=== PATIENT | male | born 1975 | race Caucasian/White ===

== ENCOUNTER 2019-11-09 00:05 | Emergency (ER) | payer SELFPAY ==
[~2019-11-09 00:05] MED LIST: IBUPROFEN600 MG PO; NO HOME MEDICATIONS; PHENERGAN W/CO120 M1 PO; VENTOLIN0.09 MG IH
[2019-11-09 00:50] LABS: HEMATOCRIT 44.4 % (42.0-52.0); HEMOGLOBIN 15.1 g/dL (13.5-18.0); MEAN CELL VOLUME 88 fl (78-100); MEAN CORPUSCULAR HEMOGLOBIN 30 pg (27-31); MEAN CORPUSCULAR HGB CONC 34 g/dL (33-37); MEAN PLATELET VOLUME 9.1 fl (7.4-10.4); PLATELET COUNT 269 K/mm3 (130-400); RED BLOOD COUNT 5.05 M/mm3 (4.20-5.60); RED CELL DISTRIBUTION WIDTH 13.7 % (11.5-14.5); WHITE BLOOD COUNT 15.3 K/mm3 (4.8-10.8)
[2019-11-09 00:58] LABS: ALBUMIN 4.5 g/dL (3.5-5.0)
[2019-11-09 00:59] LABS: POTASSIUM 4.1 mmol/L (3.5-5.1)
[2019-11-09 01:00] LABS: CALCIUM 9.1 mg/dL (8.3-10.5)
[2019-11-09 01:01] LABS: TOTAL PROTEIN 7.3 g/dL (6.4-8.3)
[2019-11-09 01:03] LABS: TOTAL BILIRUBIN 0.2 mg/dL (0.2-1.2)
[2019-11-09 01:10] LABS: URINE APPEARANCE CLEAR; URINE COLOR STRAW; URINE GLUCOSE NEGATIVE (NEGATIVE); URINE PROTEIN(semi-quant) NEGATIVE (NEGATIVE)
[2019-11-09 01:11] LABS: LYMPHOCYTE 14 % (20-51); MONOCYTE 4 % (3-10); NEUTROPHILS 80 % (42-75); URINE BILIRUBIN NEGATIVE (NEGATIVE); URINE BLOOD TRACE (NEGATIVE); URINE KETONE 1+ (NEGATIVE); URINE LEUKOCYTE ESTERASE NEGATIVE (NEGATIVE); URINE NITRATE NEGATIVE (NEGATIVE); URINE UROBILINOGEN NORMAL (NORMAL); URINE WBC 0-1 /hpf (0-3)
[2019-11-09] MEDS ORDERED: NORCO 325 MG-51 TA1 PO (03:05)
[2019-11-09] MEDS ORDERED: CLEOCIN HCL150 M1 PO (03:05)
[2019-11-09 03:16] VITALS: BP 110/68
== END 2019-11-09 03:16 | disposition home or self-care (01) ==
LOC: ED 00:05
PROVIDERS: Family Medicine
DX: S00.83XA Contusion of other part of head, initial encounter (principal); S20.212A Contusion of left front wall of thorax, initial encounter; K08.89 Other specified disorders of teeth and supporting structures; Y04.0XXA Assault by unarmed brawl or fight, initial encounter; Y92.009 Unspecified place in unspecified non-institutional (private) residence as the place of occurrence of the external cause
CPT/HCPCS: J1885; L0172

== ENCOUNTER 2020-12-06 00:49 | Emergency (ER) | payer OTHER ==
[~2020-12-06 00:49] MED LIST changes: +CLEOCIN HCL150 M1 PO; +NORCO 325 MG-51 TA1 PO
[2020-12-06 01:32] LABS: HEMATOCRIT 44.2 % (42.0-52.0); HEMOGLOBIN 14.8 g/dL (13.5-18.0); MEAN CELL VOLUME 89 fl (78-100); MEAN CORPUSCULAR HEMOGLOBIN 30 pg (27-31); MEAN CORPUSCULAR HGB CONC 34 g/dL (33-37); MEAN PLATELET VOLUME 9.2 fl (7.4-10.4); PLATELET COUNT 236 K/mm3 (130-400); RED BLOOD COUNT 4.98 M/mm3 (4.20-5.60); RED CELL DISTRIBUTION WIDTH 13.6 % (11.5-14.5); WHITE BLOOD COUNT 9.2 K/mm3 (4.8-10.8)
[2020-12-06 01:43] LABS: ALBUMIN 4.3 g/dL (3.5-5.0)
[2020-12-06 01:44] LABS: POTASSIUM 3.3 mmol/L (3.5-5.1)
[2020-12-06 01:45] LABS: CALCIUM 9.2 mg/dL (8.3-10.5)
[2020-12-06 01:46] LABS: TOTAL PROTEIN 7.1 g/dL (6.4-8.3)
[2020-12-06 01:48] LABS: TOTAL BILIRUBIN 0.3 mg/dL (0.2-1.2)
[2020-12-06 02:29] LABS: BAND 1 % (0-10); LYMPHOCYTE 24 % (20-51); MONOCYTE 11 % (3-10); NEUTROPHILS 61 % (42-75)
[2020-12-06 02:29] LABS: URINE APPEARANCE CLEAR; URINE BILIRUBIN NEGATIVE (NEGATIVE); URINE BLOOD NEGATIVE (NEGATIVE); URINE COLOR STRAW; URINE GLUCOSE NEGATIVE (NEGATIVE); URINE KETONE NEGATIVE (NEGATIVE); URINE LEUKOCYTE ESTERASE NEGATIVE (NEGATIVE); URINE NITRATE NEGATIVE (NEGATIVE); URINE PROTEIN(semi-quant) NEGATIVE (NEGATIVE); URINE UROBILINOGEN NORMAL (NORMAL); URINE WBC 0-1 /hpf (0-3)
[2020-12-06 04:13] LABS: PARTIAL THROMBOPLASTIN TIME 23.1 SECONDS (21.0-32.0); PROTHROMBIN TIME 10.5 SECONDS (9.0-12.0)
[2020-12-06 04:30] LABS: D-DIMER 0.11 mg/L FEU (0.15-0.50)
[2020-12-06 05:33] LABS: POTASSIUM 3.7 mmol/L (3.5-5.1)
[2020-12-06 05:40] LABS: MAGNESIUM 2.54 mg/dL (1.60-2.60)
[2020-12-06 06:48] VITALS: BP 111/78
== END 2020-12-06 06:48 | disposition home or self-care (01) ==
LOC: ED 00:49
PROVIDERS: Family Medicine
DX: R07.89 Other chest pain (principal); F17.210 Nicotine dependence, cigarettes, uncomplicated
CPT/HCPCS: J1885; J2270; J2405; J3490

== ENCOUNTER 2021-06-20 14:26 | Emergency (ER) | payer OTHER ==
[~2021-06-20] VITALS: Ht 177.8 cm; Wt 74.9 kg
[2021-06-20] MEDS ORDERED: TESSALON PERLE100 M1 PO (15:05)
[2021-06-20 15:20] VITALS: BP 124/96
== END 2021-06-20 15:33 | disposition home or self-care (01) ==
LOC: ED 14:26
DX: J40 Bronchitis, not specified as acute or chronic (principal); B34.9 Viral infection, unspecified; F17.210 Nicotine dependence, cigarettes, uncomplicated; Z20.822 Contact with and (suspected) exposure to COVID-19